=== PATIENT | female | born 1995 | race Caucasian/White ===

== ENCOUNTER 2019-04-28 09:44 | Emergency (ER) | payer OTHER ==
[2019-04-28 09:57] VITALS: BP 136/72
--- NOTE | 2019-04-28 10:18 | ED Physician Documentation ---
History of Present Illness - Stated complaint Stated Complaint: FEMALE - Chief complaint Chief Complaint: Abd Pain - History obtained from History obtained from: Patient - History of Present Illness Timing: Last night Pain level max: 0 Pain level now: 0 - Additonal information Additional information: Patient states that she had sexual intercourse last night, the condom slipped off during intercourse. She is unable to retrieve a condom. Asymptomatic. Nothing makes it better or worse. No pain Review of Systems Constitutional: denies: Fever : denies: Discharge PD PAST MEDICAL HISTORY - Past Medical History Past Medical History: No - Past Surgical History Past Surgical History: Yes - Present Medications Home Medications: Ambulatory Orders Medication Instructions Recorded Confirmed No Known Home Medications 04/28/19 - Allergies Allergies/Adverse Reactions: Allergies Allergy/AdvReac Type Severity Reaction Status Date / Time No Known Drug Allergies Allergy Verified 04/28/19 10:04 - Social History Does the pt smoke?: No Smoking Status: Never smoker Does the pt drink ETOH?: Yes Does the pt have substance abuse?: Yes Substance Use and Type: Marijuana - Immunizations Immunizations are current?: Yes PD ED PE NORMAL - Vitals Vital signs reviewed: Yes (HR 84) - General General: Alert and oriented X 3, No acute distress - HEENT HEENT: Moist mucous membranes - Neck Neck: Supple, no meningeal sign - Abdomen Abdomen: Soft, Non tender, Non distended - Female Female : Heel Seat Fitter present (Makayla RN), Other (Retained condom. Removed with ring forceps. No complications) - Derm Derm: Warm and dry - Neuro Neuro: Alert and oriented X 3 Results - Vitals Vitals: Vital Signs - 24 hr 04/28/19 09:56 Temperature 36.5 C Respiratory 16 Rate Blood Pressure 136/72 H O2 Saturation 98 Oxygen O2 Source Room air PD MEDICAL DECISION MAKING - ED course Complexity details: considered differential, d/w patient ED course: Condom removed. Tolerated well. No complications. Patient counseled regarding signs and symptoms for which I believe and urgent re-evaluation would be necessary. Patient with good understanding of and agreement to plan and is comfortable going home at this time This document was made in part using voice recognition software. While efforts are made to proofread this document, sound alike and grammatical errors may occur. Departure - Departure Disposition: 01 Home, Self Care Clinical Impression: Vaginal foreign body Qualifiers: Encounter type: initial encounter Qualified Code(s): T19.2XXA - Foreign body in vulva and vagina, initial encounter Condition: Good Instructions: ED Foreign Body Vaginal Follow-Up: Your,doctor as needed [Other] Comments: The condom was removed. Return if you worsen. Discharge Date/Time: 04/28/19 10:28
== END 2019-04-28 10:28 | disposition home or self-care (01) ==
LOC: ED 09:44
DX: T19.2XXA Foreign body in vulva and vagina, initial encounter (principal); X58.XXXA Exposure to other specified factors, initial encounter
CPT/HCPCS: 99282

== ENCOUNTER 2021-11-15 05:45 | Emergency (ER) | payer OTHER ==
--- NOTE | 2021-11-15 06:12 | ED Physician Documentation ---
History of Present Illness - Stated complaint Stated Complaint: LOW ABD PX - Chief complaint Chief Complaint: Abd Pain - History obtained from History obtained from: Patient, Family - Additonal information Additional information: 26yF with pmh ectopic s/p oopherectomy, currently ega 6 and 1 with LMP 10/03 p/w LLQ pain this am intermittent, aching, with concern for repeat ectopic. denies vaginal discharge, bleeding, urinary sx, back pain. pain is 2/10 Review of Systems Ten Systems: 10 systems reviewed and negative PD PAST MEDICAL HISTORY - Past Surgical History Past Surgical History: Yes - Present Medications Home Medications: Ambulatory Orders Medication Instructions Recorded Confirmed No Known Home Medications 04/28/19 - Allergies Allergies/Adverse Reactions: Allergies Allergy/AdvReac Type Severity Reaction Status Date / Time No Known Drug Allergies Allergy Verified 04/28/19 10:04 - Social History Does the pt smoke?: No Smoking Status: Never smoker Does the pt drink ETOH?: Yes Does the pt have substance abuse?: Yes - Immunizations Immunizations are current?: Yes PD ED PE NORMAL - Vitals Vital signs reviewed: Yes - General General: Alert and oriented X 3, No acute distress, Well developed/nourished - HEENT HEENT: Atraumatic, PERRL, EOMI - Neck Neck: Supple, no meningeal sign - Cardiac Cardiac: RRR - Respiratory Respiratory: No respiratory distress, Clear bilaterally - Abdomen Abdomen: Non tender, Non distended, Other (LLQ discomfort to palpation) - Back Back: No CVA TTP - Derm Derm: Normal color, Warm and dry - Extremities Extremities: No deformity - Neuro Neuro: Alert and oriented X 3, No motor deficit, No sensory deficit - Psych Psych: Normal mood, Normal affect Results - Vitals Vitals: Vital Signs - 24 hr 11/15/21 06:12 Temperature 36.2 C L Heart Rate 85 Respiratory 16 Rate Blood Pressure 129/74 O2 Saturation 100 Oxygen O2 Source Room air - Labs Labs: Laboratory Tests 11/15/21 11/15/21 11/15/21 06:05 06:24 06:24 WBC 8.7 RBC 4.66 Hgb 13.0 Hct 39.6 MCV 85.0 MCH 27.9 MCHC 32.8 RDW 13.8 Plt Count 223 MPV 10.3 Neut # (Auto) 6.0 Lymph # (Auto) 1.8 Grant # (Auto) 0.4 Eos # (Auto) 0.3 Baso # (Auto) 0.0 Absolute Nucleated RBC 0.00 Nucleated RBC % 0.0 Sodium 134 L Potassium 4.5 Chloride 102 Carbon Dioxide 22 Anion Gap 10.0 BUN 8 Creatinine 0.7 Estimated GFR (MDRD) 103 Glucose 99 Calcium 9.4 Total Bilirubin 0.8 AST 17 ALT 14 Alkaline Phosphatase 50 Total Protein 7.7 Albumin 4.1 Globulin 3.6 Albumin/Globulin Ratio 1.1 Lipase 31 HCG, Quant Urine Color YELLOW Urine Clarity CLEAR Urine pH 7.5 Ur Specific [place] 1.020 Urine Protein NEGATIVE Urine Glucose (UA) NEGATIVE Urine Ketones 15 H Urine Occult Blood NEGATIVE Urine Nitrite NEGATIVE Urine Bilirubin NEGATIVE Urine Urobilinogen 0.2 (NORMAL) Ur Leukocyte Esterase NEGATIVE Ur Microscopic Review NOT INDICATED Urine Culture Comments NOT INDICATED Urine HCG, Qual POSITIVE 11/15/21 06:24 WBC RBC Hgb Hct MCV MCH MCHC RDW Plt Count MPV Neut # (Auto) Lymph # (Auto) Grant # (Auto) Eos # (Auto) Baso # (Auto) Absolute Nucleated RBC Nucleated RBC % Sodium Potassium Chloride Carbon Dioxide Anion Gap BUN Creatinine Estimated GFR (MDRD) Glucose Calcium Total Bilirubin AST ALT Alkaline Phosphatase Total Protein Albumin Globulin Albumin/Globulin Ratio Lipase HCG, Quant 86085.00 Urine Color Urine Clarity Urine pH Ur Specific [place] Urine Protein Urine Glucose (UA) Urine Ketones Urine Occult Blood Urine Nitrite Urine Bilirubin Urine Urobilinogen Ur Leukocyte Esterase Ur Microscopic Review Urine Culture Comments Urine HCG, Qual PD MEDICAL DECISION MAKING - ED course ED course: 26yF with pmh ectopic p/w LLQ pain. ultrasound to be performed to eval for ectopic. u/s prelim read with + pole and yolk sac in the uterus. FHR not detectable yet. scant periovarian free fluid. [facility] stating this is not a desired at this time. return precautions given. Departure - Departure Disposition: 01 Home, Self Care Clinical Impression: Abdominal pain affecting Condition: Good Instructions: ED Abdominal Pain Female Non-Specific Abdominal Pain Comments: You were seen in the ED for abdominal pain. Your labs and urine test were normal. You had a positive test today. An ultrasound was done as well that showed early inside the uterus. Your HCG, a blood test for , was [phone] which is in a good range for your dates. Please return to the ED if you have new or worsening symptoms or other concerns. Follow up with director global strategic publisher sales for further evaluation this week. [facility] [address] [place] [id number]
[2021-11-15 06:13] LABS: BILIRUBIN,URINE NEGATIVE (NEGATIVE); GLUCOSE, URINE (UA) NEGATIVE (NEGATIVE); KETONES,URINE (UA) 15 mg/dL (NEGATIVE); LEUKOCYTE ESTERASE, URINE NEGATIVE (NEGATIVE); NITRITE,URINE NEGATIVE (NEGATIVE); OCCULT BLOOD,URINE NEGATIVE (NEGATIVE); PH,URINE 7.5 PH (5.0-7.5); PROTEIN,URINE NEGATIVE (NEGATIVE); UROBILINOGEN,URINE 0.2 (NORMAL) E.U./dL (NORMAL)
[2021-11-15 06:14] LABS: CLARITY,URINE CLEAR (CLEAR); HCG UR QUAL POSITIVE
[2021-11-15 06:29] LABS: BASOPHILS % (AUTO) 0.3 %; EOSINOPHILS # (AUTO) 0.3 10^3/uL (0.0-0.7); EOSINOPHILS % (AUTO) 3.9 %; HCT - HEMATOCRIT 39.6 % (37.0-47.0); LYMPHOCYTES # (AUTO) 1.8 10^3/uL (1.5-3.5); LYMPHOCYTES % (AUTO) 21.1 %; MEAN CORPUSCULAR HEMOGLOBIN 27.9 pg (27.0-31.0); MEAN CORPUSCULAR HGB CONC 32.8 g/dL (32.0-36.0); MEAN PLATELET VOLUME 10.3 fL (7.9-10.8); MONOCYTES # (AUTO) 0.4 10^3/uL (0.0-1.0); MONOCYTES % (AUTO) 4.6 %; NEUTROPHILS % (AUTO) 69.6 %; PLT - PLATELET COUNT 223 10^3/uL (130-450); RED BLOOD COUNT 4.66 10^6/uL (4.20-5.40); RED CELL DISTRIBUTION WIDTH 13.8 % (12.0-15.0); WHITE BLOOD COUNT 8.7 x10^3/uL (4.8-10.8)
[2021-11-15 06:45] LABS: ALBUMIN 4.1 g/dL (3.2-5.5); ALBUMIN/GLOBULIN RATIO 1.1 (1.0-2.2); BILIRUBIN,TOTAL 0.8 mg/dL (0.2-1.0); CALCIUM 9.4 mg/dL (8.5-10.3); CREATININE 0.7 mg/dL (0.4-1.0); POTASSIUM 4.5 mmol/L (3.5-5.0); TOTAL PROTEIN 7.7 g/dL (6.7-8.2)
[2021-11-15 07:19] VITALS: BP 139/78
--- NOTE | 2021-11-15 08:45 | Ultrasound Report ---
PROCEDURE: OB First Trimester w/TV INDICATIONS: LLQ pain, hx ectopic OUTSIDE/PRIOR DATING DATA: Last menstrual period (LMP): 10/03/2021. LMP-based estimated date of delivery (NYA): 07/10/2022. First dating scan (date and location): Current study. Estimated date of delivery (NYA) from first dating scan: Not applicable. TECHNIQUE: Real-time scanning was performed of the fetus and maternal pelvic organs, with image documentation. Endovaginal scanning was also performed to better visualize the fetus and maternal ovaries. COMPARISON: None FINDINGS: Mean gestational sac diameter is 0.92 cm which corresponds with a 5 week 5 day +/- 12 day gestation. A yolk sac is visible which measures 2.2 mm. There is a suspected pole with a crown-rump length of 1.1 mm each is out of range to determine gestational age. No cardiac activity was detected. Maternal organs: Anteverted uterus contains a fundal gestational sac with a moderate decidual respons e. There is a small irregular and active subchorionic hemorrhage inferior to the gestational sac kris uring 0.5 x 0.8 x 1.0 cm. The cervix is closed. The left ovary contains a round, mildly hyperechoic m ass measuring 1.9 cm and a small exophytic follicle measuring 1.0 cm. The right ovary has a normal ec hotexture. Trace fluid in the cul-de-sac. IMPRESSION: 1. There are intrauterine products of conception which are too small to determine an accurate gestati onal age by crown-rump length. This most likely represents an early and continued follow-up with beta hCG levels and reimaging in 2-3 weeks is recommended to document viable . 2. Tiny subchorionic hemorrhage, but closed cervix. 3. Left ovarian corpus luteum. 4. Final report is concordant with preliminary report. Reviewed by: Ansley Dobbs MD on 11/15/2021 8:43 AM PST Approved by: Ansley Dobbs MD on 11/15/2021 8:43 AM PST Station ID: [id number]
== END 2021-11-15 07:33 | disposition home or self-care (01) ==
LOC: ED 05:45
DX: O26.899 Other specified pregnancy related conditions, unspecified trimester (principal); R10.2 Pelvic and perineal pain; Z3A.01 Less than 8 weeks gestation of pregnancy
CPT/HCPCS: 36415; 80053; 81001; 81003; 81025; 83690; 84702; 85025; 87086; 99281; 99284